=== PATIENT | female | born 1995 | race Two or more races ===

== ENCOUNTER → 2024-07-17 | Outpatient (CLI) | payer MEDICAID, SELFPAY ==
--- NOTE | 2024-07-17 | XR_ITS ---
EXAMINATION: Ankle, right 3 views . Technique: Ankle AP, oblique, lateral 3 views Date and time of exam: July 17, 2024 0800 hours INDICATIONS: Injury to the ankle 2023 oh surgery, persistent pain FINDINGS: Orthopedic hardware traverses calcaneus and talus Pes planus Moderate osteoarthritis tibiotalar joint No acute fracture IMPRESSION: Moderate osteoarthritis tibiotalar joint
== END | disposition home or self-care (01) ==
PROVIDERS: PCP Family Medicine; Referring Provider Family Medicine; Visit Provider Family Medicine
DX: M19.071 Primary osteoarthritis, right ankle and foot (principal)
CPT/HCPCS: 73610

== ENCOUNTER → 2024-07-29 | Outpatient (CLI) | payer MEDICAID, SELFPAY ==
--- NOTE | 2024-07-29 14:56 | XR_ITS ---
Examination: Sinus series 4 views TECHNIQUE: Silvano Peace lateral submentovertex sinus series 4 views Exam date and time: July 29, 2024 1527 hours INDICATIONS: Sinus pressure and pain headaches beginning one week ago FINDINGS: Mild opacity frontal ethmoid air cells Mucosal thickening up to 10 mm in the maxillary antra Haziness in the sphenoid air cells. No fluid levels No retention cysts No cortical bone destruction IMPRESSION: Mild chronic pansinusitis
== END | disposition home or self-care (01) ==
PROVIDERS: PCP Family Medicine; Referring Provider Family Medicine; Visit Provider Family Medicine
DX: J32.4 Chronic pansinusitis (principal)
CPT/HCPCS: 70220

== ENCOUNTER → 2024-09-30 | Outpatient (CLI) | payer OTHER, SELFPAY ==
--- NOTE | 2024-09-30 | XR_ITS ---
Examination: CT maxillofacial, without intravenous contrast. 2-D sagittal reconstructions. 3-D reconstructions. Date and time of exam:September 30, 2024 0739 hours INDICATIONS: Sinus pressure and pain months CTDI: vol (mGy):7.19 DLP: (mGycm):94.3 Technique: Multiple axial images of maxillofacial region, 3.0 mm slice thickness. 2-D sagittal and coronal reconstructions. 3-D reconstructions. Low dose protocols were performed. One or more of the following dose reduction techniques were used; automated exposure control, adjustment of the mA and/or KV according to patient size, use of iterative reconstruction technique. Findings: Trace mucosal thickening frontal air cells Mild mucosal thickening ethmoid air cells. No occlusion ostiomeatal complexes. Minimal mucosal thickening maxillary antra 1 to 2 mm Mild hypertrophy inferior nasal turbinates Fluid levels in the sphenoid sinus No nasopharyngeal mass IMPRESSION: Pansinusitis Acute sphenoid sinusitis
== END | disposition home or self-care (01) ==
LOC: CDIM 07:07
PROVIDERS: PCP Family Medicine; Referring Provider Family Medicine; Visit Provider Family Medicine
DX: J32.4 Chronic pansinusitis (principal); J01.30 Acute sphenoidal sinusitis, unspecified; Z91.09 Other allergy status, other than to drugs and biological substances
CPT/HCPCS: 70486

== ENCOUNTER → 2024-09-30 | Outpatient (CLI) | payer OTHER, SELFPAY ==
[2024-09-30 17:27] LABS: Basophils % (Auto) 0 % (0-2.5); Eosinophils # (Auto) 0.1 Thou/mm3 (0.0-0.5); Eosinophils % (Auto) 1 % (0-10); Hematocrit 39.3 % (36.0-46.0); Hemoglobin 12.7 g/dL (12.0-16.0); Immature Granulocytes % (Auto) 0 % (0-0); Immature Granulocytes Auto 0.01 Thou/mm3 (0.00-0.00); Lymphocytes # (Auto) 2.9 Thou/mm3 (1.0-4.8); Lymphocytes % (Auto) 37 % (10-50); Mean Corpuscular HGB Conc 32.3 g/dl (31.0-37.0); Mean Corpuscular Hemoglobin 27.9 pg (25.0-35.0); Mean Corpuscular Volume 86 fL (80-100); Monocytes # (Auto) 0.5 Thou/mm3 (0.0-0.8); Monocytes % (Auto) 7 % (0-12); Neutrophils # (Auto) 4.2 Thou/mm3 (1.8-7.7); Neutrophils % (Auto) 55 % (37-80); Nucleated Red Blood Cell % 0 /100 WBC (0); Platelet Count 283 Thou/mm3 (140-440); RDW Standard Deviation 45.1 fL (36.4-46.3); Red Blood Count 4.56 Miln/mm3 (4.00-5.20); White Blood Count 7.8 Thou/mm3 (3.6-11.0)
[2024-09-30 17:39] LABS: Glucose Estimated Average 100 mg/dL (80-131); Hemoglobin A1C 5.1 % Hgb (4.8-6.0)
[2024-09-30 17:43] LABS: Thyroid Stimulating Hormone 1.22 uIU/mL (0.55-4.78)
[2024-09-30 17:48] LABS: Ferritin 9 ng/mL (7.3-270.7); Iron 21 mcg/dL (50-170)
== END | disposition home or self-care (01) ==
PROVIDERS: PCP Family Medicine; Referring Provider Family Medicine; Visit Provider Family Medicine
DX: E11.65 Type 2 diabetes mellitus with hyperglycemia (principal); D50.0 Iron deficiency anemia secondary to blood loss (chronic); E03.2 Hypothyroidism due to medicaments and other exogenous substances
CPT/HCPCS: 36415; 82728; 83036; 83540; 84439; 84443; 85025

== ENCOUNTER → 2024-11-05 | Outpatient (CLI) | payer OTHER, MEDICAID, SELFPAY ==
[2024-11-05 18:10] LABS: Syphilis Nonreactive (Nonreactive)
[2024-11-05 18:31] LABS: HIV (1&2) Antibody Rapid Non-Reactive
[2024-11-06 14:10] LABS: Chlamydia trachomatis PCR Negative (Not Detect); Neisseria Gonorrhoeae DNA PCR Negative (Not Detect); Trichomonas Negative (Negative)
== END | disposition home or self-care (01) ==
LOC: COPL 16:53
PROVIDERS: PCP Family Medicine; Referring Provider Physician Assistant; Visit Provider Physician Assistant
DX: Z11.3 Encounter for screening for infections with a predominantly sexual mode of transmission (principal)
CPT/HCPCS: 36415; 86703; 86780; 87491; 87591; 87661